=== PATIENT | female | born 1995 | race Caucasian/White ===

== ENCOUNTER 2022-03-17 16:06 | Outpatient (CLI) | payer OTHER | END 2022-03-17 16:07 | disposition home or self-care (01) | LOC: CSHCT 16:06 | PROVIDERS: ATTEND Neurological Surgery | DX: M51.17 Intervertebral disc disorders with radiculopathy, lumbosacral region (principal); M46.1 Sacroiliitis, not elsewhere classified | CPT/HCPCS: 72131 ==

== ENCOUNTER 2023-05-26 13:26 | Outpatient (CLI) | payer OTHER | END 2023-05-26 13:27 | disposition home or self-care (01) | LOC: CSHMRI 13:26 | PROVIDERS: ATTEND Internal Medicine | DX: M51.27 Other intervertebral disc displacement, lumbosacral region (principal) | CPT/HCPCS: 72148 ==